=== PATIENT | male | born 1930 | race Caucasian/White ===

== ENCOUNTER 2019-10-18 09:54 | Emergency (ER) | payer OTHER ==
[2019-10-18 10:42] LABS: Basophils % 0.7 % (0-1.3); Hematocrit 40.1 % (39.6-49.0); Lymphocytes % 25.4 % (15.3-44.8); MPV 12.8 fL (7.6-11.3); RBC Red Blood Cell Count 4.35 M/uL (4.33-5.43)
[2019-10-18 10:45] LABS: Protime INR 1.41
--- NOTE | 2019-10-18 11:08 | RAD REPORT ---
EXAM DESCRIPTION: RAD - Chest Single View - 10/18/2019 10:45 am CLINICAL HISTORY: COUGH COMPARISON: Portable September 2016, two view December 2010, portable August 2009 TECHNIQUE: AP portable chest image was obtained 10/18/2019 10:45 am . FINDINGS: Lung volumes are relatively low but no peripheral mass consolidation is confirmed. Slight prominence of the bibasilar lung marking can be accounted for by the shallow inspiration. Heart size normal. No vascular engorgement. Fullness along the right side of the mediastinum pend hilar region s imilar to prior imaging. This is accentuated in part by rotation. No measurable pleural effusion and no pneumothorax. No acute bony abnormality seen. No acute aortic findings suspected. IMPRESSION: No acute lung parenchymal process identifiable.
--- NOTE | 2019-10-18 11:47 | RAD REPORT ---
EXAM DESCRIPTION: CT - Chest For Pe Angio - 10/18/2019 11:24 am CLINICAL HISTORY: cough, hemoptysis COMPARISON: Chest Single View dated 10/18/2019 TECHNIQUE: Dynamically enhanced 3 mm thick images of the chest were obtained during administration o f approximately 150mL Isovue 370 IV contrast. Coronal and oblique MIP reconstruction images were gene rated and reviewed. Exam utilizes a protocol to evaluate the pulmonary arterial tree. All CT scans are performed using dose optimization technique as appropriate and may include automated exposure control or mA/KV adjustment according to patient size. FINDINGS: No pulmonary emboli are identified. Far peripheral branch assessment is somewhat limited b y motion. No abnormality suspected. No gross aortic abnormality. Aorta assessment is limited on PE protocol study. No pericardial thicken ing or effusion. No infiltrate or mass in the lung parenchyma. No pleural effusion or pleural thickening. No mediastinal or hilar suspicious masses. No chest wall masses or abnormal axillary lymphadenopathy. No endobronchial lesions are identified. No abnormal bronchial wall thickening. Bilateral shoulder joint degenerative changes are present only partially imaged. No pathologic bone p rocess confirmed. IMPRESSION: No pulmonary emboli identified. No other significant or suspicious findings.
--- NOTE | 2019-10-18 12:13 | ER ---
Nurse's Notes [facility] Name: Ayo Cordero Age: 89 yrs Sex: Male : 1930 Arrival Date: 10/18/2019 Time: 09:56 Bed 8 Private MD: Diagnosis: Cough;Hemoptysis Presentation: 10/17 10:00 Chief complaint: Worsening productive cough with blood tinged yellow sputum and hb intermittent fever x 1 month. Coronavirus screen: Patient reports a cough. Patient denies shortness of breath or difficulty breathing. Patient denies measured and/or subjective temperature greater than 100.4F prior to today's visit. Patient denies travel on a cruise ship or to a country the [facility] currently lists as an affected area. Patient denies contact with known and/or suspected case of COVID-19. Ebola Screen: No symptoms or risks identified at this time. Initial Sepsis Screen: Does the patient meet any 2 criteria? No. Patient's initial sepsis screen is negative. Does the patient have a suspected source of infection? No. Patient's initial sepsis screen is negative. Risk Assessment: Do you want to hurt yourself or someone else? Patient reports no desire to harm self or others. Onset of symptoms was September 2019. 10:00 Method Of Arrival: Ambulatory hb 10:00 Acuity: TEJINDER 3 hb Historical: - Allergies: 10:03 No Known Allergies; hb - Home Meds: 10:03 clopidogrel 75 mg Oral tab 1 tab once daily [Active]; Lipitor 80 mg Oral tab 1 tab once hb daily [Active]; lisinopril 10 mg Oral tab 1 tab once daily [Active]; meclizine 25 mg Oral tab 1 tab as needed for vertigo [Active]; metoprolol succinate 25 mg Oral Tb24 1 tab once daily [Active]; tamsulosin 0.4 mg Oral cp24 1 cap once daily [Active]; - PMHx: 10:03 Hyperlipidemia; Hypertension; prostate englargement; hb - Immunization history:: Adult Immunizations up to date. - Social history:: Smoking status: Patient denies any tobacco usage or history of. - Family history:: not pertinent. - Hospitalizations: : No recent hospitalization is reported. Screenin:45 Abuse screen: Denies threats or abuse. Nutritional screening: No deficits noted. Tuberculosis screening: No symptoms or risk factors identified. Fall Risk None identified. Assessment: 10:42 General: Appears in no apparent distress. Behavior is calm, cooperative. Pain: Denies ah pain. Neuro: Level of Consciousness is awake, alert, obeys commands, Oriented to person, place, time, situation, Partition Setter are equal bilaterally Speech is normal, Facial symmetry appears normal. Cardiovascular: Denies chest pain, Heart tones S1 S2 present Capillary refill < 3 seconds Patient's skin is warm and dry. Pulses are palpable in right radial artery, right dorsalis pedis artery, left radial artery and left dorsalis pedis artery. Respiratory: Airway is patent Respiratory effort is even, unlabored, Respiratory pattern is regular, symmetrical, Sputum is thick, blood streaked, yellow Breath sounds are coarse bilaterally. GI: No signs and/or symptoms were reported involving the gastrointestinal system. Bowel sounds present X 4 quads. Abd is soft and non tender. : No signs and/or symptoms were reported regarding the genitourinary system. EENT: Nares are clear with drainage noted. Derm: No signs and/or symptoms reported regarding the dermatologic system. Musculoskeletal: No signs and/or symptoms reported regarding the musculoskeletal system. Vital Signs: 10:00 BP 131 / 76; Pulse 81; Resp 20; Temp 97.8; Pulse Ox 96% on R/A; Weight 82.55 kg; Height hb 5 ft. 11 in. (180.34 cm); Pain 0/10; 12:36 BP 112 / 93; Pulse 63; Resp 18; Pulse Ox 96% ; ah 10:00 Body Mass Index 25.38 (82.55 kg, 180.34 cm) ED Course: 09:56 Patient arrived in ED. am2 10:02 Triage completed. hb 10:03 Kulwinder Haines MD is Attending Physician. rn 10:03 Arm band placed on. hb 10:20 Initial lab(s) drawn, by ma, sent to lab. First set of blood cultures drawn by ma. 3 Inserted saline lock: 18 gauge in right forearm, using aseptic technique. Blood collected. 10:24 Patricia Weiss, RN is Primary Nurse. 10:25 Second set of blood cultures drawn by ma. 3 10:45 Patient has correct armband on for positive identification. Placed in gown. Bed in low ah position. Call light in reach. Side rails up X 1. 10:46 XRAY CXR (1 view) In Process Unspecified. EDMS 11:[address] via stretcher. 11:25 CT Chest For PE Angio In Process Unspecified. EDMS 12:35 No provider procedures requiring assistance completed. IV discontinued, intact, bleeding controlled, No redness/swelling at site. Pressure dressing applied. Administered Medications: No medications were administered Outcome: 12:12 Discharge ordered by . rn 12:35 Discharged to home ambulatory. 12:35 Condition: good 12:35 Discharge instructions given to patient, Instructed on discharge instructions, follow up and referral plans. medication usage, Demonstrated understanding of instructions, follow-up care, medications, Prescriptions given X 2. 12:36 Patient left the ED. Signatures: Dispatcher [employer] [facility] Kulwinder Haines MD MD rn Baxter, Heather RN Cheyenne Baker am2 Yanely Washburn 3 Patricia Weiss RN JUAQUIN
--- NOTE | 2019-10-18 12:14 | EDPHYS ---
Physician Documentation [facility] Name: Ayo Cordero Age: 89 yrs Sex: Male : 1930 Arrival Date: 10/18/2019 Time: 09:56 Bed 8 Private MD: ED Physician Kulwinder Haines HPI: 10/17 10:13 This 89 yrs old Male presents to ER via Ambulatory with complaints of Cough, rn Congestion. 10:13 The patient or guardian reports cough, described as mild, with productive sputum. rn Onset: The symptoms/episode began/occurred 1 month(s) ago. Severity of symptoms: At their worst the symptoms were mild, in the emergency department the symptoms are unchanged. Modifying factors: The symptoms are alleviated by nothing, the symptoms are aggravated by nothing. The patient has not experienced similar symptoms in the past. Reports cough and congestion for 1 month, fever 3 weeks ago but not now, noticed small amount of blood in sputum last night, so came in. Denies chest pain or sob. Reports doesn't feel ill, but blood was alarming.. Historical: - Allergies: 10:03 No Known Allergies; hb - Home Meds: 10:03 clopidogrel 75 mg Oral tab 1 tab once daily [Active]; Lipitor 80 mg Oral tab 1 tab once hb daily [Active]; lisinopril 10 mg Oral tab 1 tab once daily [Active]; meclizine 25 mg Oral tab 1 tab as needed for vertigo [Active]; metoprolol succinate 25 mg Oral Tb24 1 tab once daily [Active]; tamsulosin 0.4 mg Oral cp24 1 cap once daily [Active]; - PMHx: 10:03 Hyperlipidemia; Hypertension; prostate englargement; hb - Immunization history:: Adult Immunizations up to date. - Social history:: Smoking status: Patient denies any tobacco usage or history of. - Family history:: not pertinent. - Hospitalizations: : No recent hospitalization is reported. ROS: 10:13 Constitutional: Negative for fever, chills, and weight loss, Eyes: Negative for injury, rn pain, redness, and discharge, Neck: Negative for injury, pain, and swelling, Cardiovascular: Negative for chest pain, palpitations, and edema, Respiratory: + cough and hemoptysis, negative for sob. Abdomen/GI: Negative for abdominal pain, nausea, vomiting, diarrhea, and constipation, MS/Extremity: Negative for injury and deformity, Skin: Negative for injury, rash, and discoloration, Neuro: Negative for headache, weakness, numbness, tingling, and seizure. Exam: 10:13 Constitutional: This is a well developed, well nourished patient who is awake, alert, rn and in no acute distress. Ambulatory to room without distress or assistance. Head/Face: Normocephalic, atraumatic. Neck: Trachea midline, no thyromegaly or masses palpated, and no cervical lymphadenopathy. Supple, full range of motion without nuchal rigidity, or vertebral point tenderness. No Meningismus. Cardiovascular: Regular rate and rhythm. No pulse deficits. Respiratory: Clear bilateral breath sounds. No increased work of breathing, no retractions or nasal flaring. Skin: Warm, dry MS/ Extremity: Pulses equal, no cyanosis. Neurovascular intact. Full, normal range of motion. Equal circumference. Neuro: Awake and alert, GCS 15 Vital Signs: 10:00 BP 131 / 76; Pulse 81; Resp 20; Temp 97.8; Pulse Ox 96% on R/A; Weight 82.55 kg; Height hb 5 ft. 11 in. (180.34 cm); Pain 0/10; 12:36 BP 112 / 93; Pulse 63; Resp 18; Pulse Ox 96% ; ah 10:00 Body Mass Index 25.38 (82.55 kg, 180.34 cm) hb MDM: 10:03 Patient medically screened. rn 12:11 Differential Diagnosis: Bronchitis Upper Respiratory Infection Sinusitis Viral Syndrome rn Pneumonia. Data reviewed: vital signs, nurses notes, lab test result(s), radiologic studies, CT scan, plain films, and as a result, I will discharge patient. Test interpretation: by ED physician or midlevel provider: plain radiologic studies, CXR neg for pneumonia. Counseling: I had a detailed discussion with the patient and/or guardian regarding: the historical points, exam findings, and any diagnostic results supporting the discharge/admit diagnosis, lab results, radiology results, the need for outpatient follow up, to return to the emergency department if symptoms worsen or persist or if there are any questions or concerns that arise at home. Special discussion: I discussed with the patient/guardian in detail that at this point there is no indication for admission to the hospital. It is understood, however, that if the symptoms persist or worsen the patient needs to return immediately for re-evaluation. ED course: Neg cxr and CT PE, no oxygen requirement, will cover with abx given hemoptysis and prolonged productive cough.. 12:17 ED course: Still productive cough, no hemoptysis while here.. rn 10/17 10:10 Order name: Blood Culture Adult (2) rn 10/17 10:10 Order name: BMP; Complete Time: : rn 10/17 10:10 Order name: CBC with Diff; Complete Time: rn 10/17 10:10 Order name: NT PRO-BNP; Complete Time: : rn 10/17 10:10 Order name: PT-INR; Complete Time: rn 10/17 10:10 Order name: Ptt, Activated; Complete Time: rn 10/17 10:10 Order name: XRAY CXR (1 view); Complete Time: 10/17 10:10 Order name: EKG; Complete Time: : rn 10/17 10:10 Order name: Cardiac monitoring; Complete Time: rn 10/17 10:10 Order name: EKG - Nurse/Tech; Complete Time: rn 10/17 10:10 Order name: IV Saline Lock; Complete Time: rn 10/17 10:10 Order name: Labs collected and sent; Complete Time: 10/17 10:10 Order name: Procalcitonin; Complete Time: : rn 10/17 11:07 Order name: CT Chest For PE Angio; Complete Time: 10/17 10:10 Order name: O2 Per Protocol; Complete Time: rn 10/17 10:10 Order name: O2 Sat Monitoring; Complete Time: 11: rn Administered Medications: No medications were administered Disposition: 10/18/19 12:12 Discharged to Home. Impression: Cough, Hemoptysis. - Condition is Stable. - Discharge Instructions: Hemoptysis, Cough, Adult. - Prescriptions for Augmentin 875- 125 mg Oral Tablet - take 1 tablet by ORAL route every 12 hours for 10 days; 20 tablet. Guaifenesin AC 10- 100 mg/5 mL Oral Liquid - take 10 milliliter by ORAL route every 4 hours As needed; 240 milliliter. - Medication Reconciliation Form, Thank You Letter, Antibiotic Education, Prescription Opioid Use form. - Follow up: Private Physician; When: As needed; Reason: Recheck today's complaints, Re-evaluation by your physician. - Problem is an ongoing problem. - Symptoms have improved. Signatures: Dispatcher [employer] EDMS Kulwinder Haines MD MD rn Baxter, Heather, RN RN hb Harris, Amy, RN RN Corrections: (The following items were deleted from the chart) 12:36 12:12 10/18/2019 12:12 Discharged to Home. Impression: Cough; Hemoptysis. Condition is ah Stable. Forms are Medication Reconciliation Form, Thank You Letter, Antibiotic Education, Prescription Opioid Use. Follow up: Private Physician; When: As needed; Reason: Recheck today's complaints, Re-evaluation by your physician. Problem is an ongoing problem. Symptoms have improved. rn
[2019-10-18 12:44] VITALS: TEMP 97.8; O2SAT 96
[2019-10-18 12:45] VITALS: BP 112/93
--- NOTE | 2019-10-18 16:23 | EKG ---
Test Date: 2019-10-18 Test Time: 10:31:34 Elementary Secretary: Favio Weiss MEASUREMENT RESULTS: Intervals: Rate: 68 NC: 192 QRSD: 144 QT: 406 QTc: 431 [place]: P: NC: 192 QRS: -41 T: -15 INTERPRETIVE STATEMENTS: Sinus rhythm with premature supraventricular complexes Left axis deviation Nonspecific intraventricular block Inferior infarct, age undetermined Cannot rule out Anterior infarct, age undetermined Abnormal ECG Compared to ECG 10/08/2016 10:04:09 Left-axis deviation now present Myocardial infarct finding still present Electronically Signed On 10-18-19 16:22:08 CDT by Gil Garcia
== END 2019-10-18 12:36 | disposition home or self-care (01) ==
LOC: ER 09:54
DX: R04.2 Hemoptysis (principal); I10 Essential (primary) hypertension; E78.5 Hyperlipidemia, unspecified
CPT/HCPCS: 93005; 87040 ×2; 85025; 80048; 36415; 85610; 85730; 84145; 83880; 71275; 71045; Q9967

== ENCOUNTER 2021-07-22 09:29 | Inpatient (IN) | payer OTHER ==
--- OUTSIDE RECORDS SUMMARY | 2021-07-22 09:32 | XMS REPORT | Continuity of Care Document ---
:1930 Author Organization [facility] t Address [address] [place] [address] [place] [id number] Care Team Providers Name Role Phone Unavailable Unavailable Unavailable Payers Payer Name Policy Type Policy Number Effective Date Expiration Date S ource COVID VACCINE [id number] 2020-07-20 00:00:00 ADMIN / TESTING Problems This patient has no known problems. Allergies, Adverse Reactions, Alerts This patient has no known allergies or adverse reactions. Medications This patient has no known medications. Procedures This patient has no known procedures. Encounters Start End Encounter Admission Attending Care Care Encounter Source Date/Time Date/Time Type Type Clinicians Facility Department ID 2020-08-10 2020-08-10 Outpatient [facility] [id number] [facility] 00:00:00 00:00:00 2020-07-20 2020-07-20 Outpatient [facility] [id number] [facility] 00:00:00 00:00:00 Results This patient has no known results.
[2021-07-22 10:26] LABS: Absolute Lymphocytes (CBC) 1.3 K/uL (0.7-4.9); Hematocrit 38.5 % (39.6-49.0); Lymphocytes % 8.8 % (15.3-44.8); MPV 12.2 fL (7.6-11.3); RBC Red Blood Cell Count 4.15 M/uL (4.33-5.43)
[2021-07-22 10:27] LABS: Protime INR 1.76
[2021-07-22 10:42] LABS: AST/SGOT 23 U/L (15-37); Albumin 2.8 g/dL (3.4-5.0); Alkaline Phosphatase 111 U/L (45-117); BUN Blood Urea Nitrogen 16 mg/dL (7-18); Bicarbonate 26 mmol/L (21-32); Bilirubin Direct 0.7 mg/dL (0-0.2); Bilirubin Total 1.7 mg/dL (0.2-1.0); Glucose Level 116 mg/dL (74-106); Magnesium 2.1 mg/dL (1.8-2.4); NT PRO-BNP 3055 pg/mL (<450); Potassium 4.4 mmol/L (3.5-5.1); Sodium Level 134 mmol/L (136-145)
[2021-07-22 10:47] LABS: ALT/SGPT < 6 U/L (12-78)
--- NOTE | 2021-07-22 11:37 | RAD REPORT ---
EXAM DESCRIPTION: RAD - Chest Single View - 07/22/2021 11:01 am CLINICAL HISTORY: cough, sob COMPARISON: <Comparisons> FINDINGS: Lines: None. Lungs: No evidence of edema or pneumonia. Pleural: No significant pleural effusions or pneumothorax. Cardiac: The heart size is within normal limits. Bones: No acute fractures. Other: IMPRESSION: No acute cardiopulmonary disease.
[2021-07-22 11:44] LABS: SARS-COV-2 RT PCR NEGATIVE (NEGATIVE)
--- NOTE | 2021-07-22 14:05 | RAD REPORT ---
EXAM DESCRIPTION: CT - Chest For Pe Angio - 07/22/2021 1:53 pm CLINICAL HISTORY: SOB COMPARISON: Chest For Pe Angio dated 10/18/2019; Chest Single View dated 07/22/2021 FINDINGS: Chest Wall: No suspicious thyroid nodules or pathologic lymphadenopathy. Lungs: Subpleural reticular opacities which are mild present. Small portion of the lung bases bilater ally are not included in the field of view. Pleura: Trace left effusion. Mediastinum/tika: Reactive sized hilar lymph nodes. Pulmonary arteries/Aorta: No filling defect identified. No aortic aneurysm. Heart: Small pericardial effusion. Normal heart size. Aortic valve calcifications. Coronary artery ca lcifications. Upper abdomen: Not included in the field of view. Bones: No acute abnormality. Multilevel degenerative changes are present in the spine. All CT scans are performed using dose optimization technique as appropriate and may include automated exposure control or mA/KV adjustment according to patient size. IMPRESSION: Negative for pulmonary embolism. Mild patchy subpleural ground-glass opacities could ref lect a mild multifocal pneumonia, including Covid-19.
[2021-07-22] MEDS ORDERED: NA CHLORIDE 0.9% 250 ML ONE (14:23)
[2021-07-22] MEDS ORDERED: CEFTRIAXONE 1000 MG/VIAL ONE (14:23)
--- NOTE | 2021-07-22 14:24 | ER ---
Nurse's Notes [facility] Name: Ayo Cordero Age: 89 yrs Sex: Male : 1930 Arrival Date: 07/22/2021 Time: 09:32 Bed 16 Private MD: Diagnosis: Multifocal Pneumonia Presentation: 07/22 09:41 Chief complaint: Patient states: pt presented to ed reporting cough congestion griffin shortness of breath x4 days. Coronavirus screen: Vaccine status: Patient reports receiving the 2nd dose of the covid vaccine. Ebola Screen: Patient denies travel to an Ebola-affected area in the 21 days before illness onset. Initial Sepsis Screen: Does the patient meet any 2 criteria? No. Patient's initial sepsis screen is negative. Does the patient have a suspected source of infection? No. Patient's initial sepsis screen is negative. Risk Assessment: Do you want to hurt yourself or someone else? Patient reports no desire to harm self or others. Onset of symptoms was July 18, 2021. 09:41 Method Of Arrival: Ambulatory griffin 09:41 Acuity: TEJINDER 3 griffin Triage Assessment: 09:45 General: Appears in no apparent distress. comfortable, well groomed, well nourished, cb5 Behavior is calm, cooperative, appropriate for age. Pain: Denies pain. Respiratory: Reports cough that is productive, nurse witness productive cough of yellow sputum. Historical: - Allergies: 09:42 Codeine; griffin - Home Meds: 09:42 clopidogrel 75 mg Oral tab 1 tab once daily [Active]; Lipitor 80 mg Oral tab 1 tab once griffin daily [Active]; lisinopril 10 mg Oral tab 1 tab once daily [Active]; meclizine 25 mg Oral tab 1 tab as needed for vertigo [Active]; metoprolol succinate 25 mg Oral Tb24 1 tab once daily [Active]; - PMHx: 09:42 Hyperlipidemia; Hypertension; prostate englargement; griffin - PSHx: 09:42 None; griffin - Immunization history:: Adult Immunizations up to date. - Social history:: Smoking status: . Screenin:56 Abuse screen: Denies threats or abuse. Denies injuries from another. Nutritional cb5 screening: No deficits noted. Tuberculosis screening: No symptoms or risk factors identified. Assessment: 09:55 General: Appears in no apparent distress. comfortable, well groomed, well nourished, cb5 Behavior is calm, cooperative, appropriate for age. Pain: Denies pain. Neuro: No deficits noted. Level of Consciousness is awake, alert, obeys commands, Oriented to person, place, time, situation, Appropriate for age. Cardiovascular: No deficits noted. Respiratory: Reports cough that is Airway is patent Trachea midline Respiratory effort is even, Respiratory pattern is regular, Sputum is thick, yellow. GI: Patient currently denies. : Denies. EENT: Denies. Derm: Denies. Musculoskeletal: Denies. 16:00 General: Gave report to Harriett Wynn for room 212. 5 Vital Signs: 09:41 BP 120 / 76; Pulse 89; Resp 18; Temp 96(O); Pulse Ox 98.7% on R/A; Weight 83.01 kg; griffin Height 5 ft. 11 in. (180.34 cm); 09:54 BP 118 / 81; Pulse 71; Resp 16; Temp 98.8; Pulse Ox 99% ; Pain 0/10; cb5 11:00 BP 112 / 77; Pulse 72; Resp 16; Pulse Ox 98% ; Pain 0/10; cb5 13:13 BP 124 / 80; Pulse 80; Resp 16; Pulse Ox 97% ; Pain 0/10; cb5 09:41 Body Mass Index 25.52 (83.01 kg, 180.34 cm) ED Course: 09:32 Patient arrived in ED. as 09:42 Triage completed. 09:45 Bakari Fox PA is PHCP. [facility] 09:45 Kulwinder Haines MD is Attending Physician. [facility] 09:53 Cynthia Ramirez, RN is Primary Nurse. cb5 09:54 Arm band placed on right wrist. cb5 09:56 No provider procedures requiring assistance completed. cb5 09:57 Patient has correct armband on for positive identification. Bed in low position. Call cb5 light in reach. Side rails up X 1. 11:01 XRAY Chest (1 view) In Process Unspecified. EDMS 11:35 COVID-19/FLU A+B (Document "Date of Onset" if Symptomatic) Sent. cb5 13:54 CT Chest For PE Angio In Process Unspecified. EDMS 14:23 Sammy Cobos MD is Hospitalizing Provider. jmm 15:38 Changed dressing on left antecubital Patient pulled IV out. Dressings: 4X4s X 1; left mb4 arm. Administered Medications: 14:29 Drug: Rocephin (cefTRIAXone) 1 grams Route: IV; Rate: calculated rate; Site: left cb5 antecubital; Outcome: 14:23 Decision to Hospitalize by Provider. jmm 16:27 Patient left the ED. cb5 Signatures: Dispatcher [employer] EDMS Bakari Fox PA PA jmm Martinez, Amelia as Baxter, Mackenzie 4 Gela Cr RN RN griffin Cynthia Ramirez, RN RN cb5 Corrections: (The following items were deleted from the chart) 09:44 09:42 Home Meds: tamsulosin 0.4 mg Oral cp24 1 cap once daily; griffin griffin
--- NOTE | 2021-07-22 14:24 | EDPHYS ---
Physician Documentation [facility] Name: Ayo Cordero Age: 89 yrs Sex: Male : 1930 Arrival Date: 07/22/2021 Time: 09:32 Bed 16 Private MD: ED Physician Kulwinder Haines HPI: 07/22 09:54 This 89 yrs old Male presents to ER via Ambulatory with complaints of Chest Congestion, jmm Cough. 09:54 The patient or guardian reports cough. Onset: The symptoms/episode began/occurred jmm gradually, 4 day(s) ago. Modifying factors: The symptoms are alleviated by nothing. the symptoms are aggravated by nothing. Associated signs and symptoms: Pertinent positives: cough, . The patient has experienced similar episodes in the past. The patient has not recently seen a physician. Historical: - Allergies: 09:42 Codeine; griffin - Home Meds: 09:42 clopidogrel 75 mg Oral tab 1 tab once daily [Active]; Lipitor 80 mg Oral tab 1 tab once griffin daily [Active]; lisinopril 10 mg Oral tab 1 tab once daily [Active]; meclizine 25 mg Oral tab 1 tab as needed for vertigo [Active]; metoprolol succinate 25 mg Oral Tb24 1 tab once daily [Active]; - PMHx: 09:42 Hyperlipidemia; Hypertension; prostate englargement; griffin - PSHx: 09:42 None; griffin - Immunization history:: Adult Immunizations up to date. - Social history:: Smoking status: . ROS: 09:54 Constitutional: Negative for fever, chills, and weight loss, Cardiovascular: Negative jmm for chest pain, palpitations, and edema. 09:54 Respiratory: Positive for cough, shortness of breath. 09:54 All other systems are negative. Exam: 09:54 Head/Face: atraumatic. Eyes: EOMI, no conjunctival erythema appreciated ENT: Moist jmm Mucus Membranes Neck: Trachea midline, Supple Chest/axilla: Normal chest wall appearance and motion. Cardiovascular: Regular rate and rhythm. No edema appreciated Respiratory: Normal respirations, no respiratory distress appreciated Abdomen/GI: Non distended, soft Back: Normal ROM Skin: General appearance color normal MS/ Extremity: Moves all extremities, no obvious deformities appreciated, no edema noted to the lower extremities Neuro: Awake and alert, normal gait Psych: Behavior is normal, Mood is normal, Patient is cooperative and pleasant 09:54 Constitutional: The patient appears in no acute distress, alert, awake. Vital Signs: 09:41 BP 120 / 76; Pulse 89; Resp 18; Temp 96(O); Pulse Ox 98.7% on R/A; Weight 83.01 kg; griffin Height 5 ft. 11 in. (180.34 cm); 09:54 BP 118 / 81; Pulse 71; Resp 16; Temp 98.8; Pulse Ox 99% ; Pain 0/10; cb5 11:00 BP 112 / 77; Pulse 72; Resp 16; Pulse Ox 98% ; Pain 0/10; cb5 13:13 BP 124 / 80; Pulse 80; Resp 16; Pulse Ox 97% ; Pain 0/10; cb5 09:41 Body Mass Index 25.52 (83.01 kg, 180.34 cm) griffin MDM: 09:54 Patient medically screened. [facility] 14:23 Data reviewed: vital signs, nurses notes. Counseling: I had a detailed discussion with josee the patient and/or guardian regarding: the historical points, exam findings, and any diagnostic results supporting the discharge/admit diagnosis, lab results, radiology results, the need for further work-up and treatment in the hospital. ED course: I discussed the patient with Dr. Cobos whom accepted the patient to the ER. 07/22 09:55 Order name: Basic Metabolic Panel; Complete Time: 10:56 [facility] 07/22 09:55 Order name: CBC with Diff [facility] 07/22 09:55 Order name: LFT's; Complete Time: 10:56 [facility] 07/22 09:55 Order name: Magnesium; Complete Time: 10:56 [facility] 07/22 09:55 Order name: NT PRO-BNP; Complete Time: 10:56 [facility] 07/22 09:55 Order name: PT-INR; Complete Time: 10:42 [facility] 07/22 09:55 Order name: Troponin HS; Complete Time: 10:56 [facility] 07/22 09:55 Order name: COVID-19/FLU A+B (Document "Date of Onset" if Symptomatic); Complete Time: [facility] 11:48 07/22 14:09 Order name: Blood Culture Adult (2) [facility] 07/22 14:52 Order name: Troponin High Sensitivity [facility] 07/22 14:52 Order name: Comprehensive Metabolic Panel [facility] 07/22 14:52 Order name: Comprehensive Metabolic Panel [facility] 07/22 14:53 Order name: CBC with Automated Diff [facility] 07/22 14:53 Order name: CBC with Automated Diff [facility] 07/22 09:55 Order name: XRAY Chest (1 view); Complete Time: 11:44 [facility] 07/22 09:55 Order name: EKG; Complete Time: 09:56 [facility] 07/22 09:55 Order name: Cardiac monitoring; Complete Time: 09:57 [facility] 07/22 09:55 Order name: EKG - Nurse/Tech; Complete Time: 11:36 [facility] 07/22 09:55 Order name: IV Saline Lock; Complete Time: 09:57 [facility] 07/22 09:55 Order name: Labs collected and sent; Complete Time: 11:36 [facility] 07/22 09:55 Order name: O2 Per Protocol; Complete Time: 09:57 [facility] 07/22 09:55 Order name: O2 Sat Monitoring; Complete Time: 09:57 [facility] 07/22 13:31 Order name: CT Chest For PE Angio; Complete Time: 14:06 [facility] 07/22 14:52 Order name: Heart Healthy [facility] 07/22 14:53 Order name: COVID 19 CPL [facility] Administered Medications: 14:29 Drug: Rocephin (cefTRIAXone) 1 grams Route: IV; Rate: calculated rate; Site: left cb5 antecubital; Disposition: 17:59 Co-signature as Attending Physician, Kulwinder Haines MD. rn Disposition Summary: 07/22/21 14:23 Hospitalization Ordered Hospitalization Status: Observation [facility] Provider: Sammy Cobos [facility] Location: Telemetry/MedSurg (observation) jmm Condition: Stable jmm Problem: new jmm Symptoms: are unchanged [facility] Bed/Room Type: Standard [facility] Room Assignment: [facility](07/22/21 16:08) Diagnosis - Multifocal Pneumonia jmm Forms: - Medication Reconciliation Form jmm - SBAR form jm Signatures: Dispatcher [employer] EDNC Bakari Fox PA PA m Kulwinder Haines MD MD rn Smirch, Shelby, RN RN Sridevi Guevara Heather RN JUAQUIN Ramirez, Cynthia, RN RN cb5 Corrections: (The following items were deleted from the chart) 09:44 09:42 Home Meds: tamsulosin 0.4 mg Oral cp24 1 cap once daily; elias griffin 15:38 14:23 [facility] domenico 16:08 15:38 [facility] eb ss
[2021-07-22] MEDS ORDERED: ALBUTEROL 2.5 MG/3 ML NEB SOL NEB PRN (14:45)
[2021-07-22] MEDS ORDERED: ONDANSETRON 4 MG/2 ML VIAL IV PRN (14:45)
[2021-07-22] MEDS ORDERED: ACETAMINOPHEN 500 MG TAB PO PRN (14:45)
[2021-07-22] MEDS ORDERED: MORPHINE 2 MG/ML SYR IV PRN (14:45)
--- NOTE | 2021-07-22 14:45 | P.HP ---
Certification for Inpatient Patient admitted to: Observation With expected LOS: <2 Midnights Patient will require the following post-hospital care: None Practitioner: I am a practitioner with admitting privileges, knowledge of patient current condition, hospital course, and medical plan of care. Services: Services provided to patient in accordance with Admission requirements found in Title 42 Section 412.3 of the Code of Federal Regulations Patient History Date of Service: 07/22/21 Reason for admission: Cough, Shortness of breath History of Present Illness: 89-year-old male with past medical history of hypertension, HLD, BPH, CVA with resolved dysarthria, hearing, A. fib on chronic anticoagulation presented because of cough since the last 4 days initially intermittent but gradually worsening assisted with onset of shortness of breath on exertion which has been progressive since the last 1 day. Cough is productive of brownish/darkish sputum. Patient presents to the ED because of persistent symptoms. He denies any chest pain no associated headache or fever. He denies any COVID contact. On presentation chest x-ray shows no acute infiltrate. Patient reside with the who is not sick at this time. Patient is vaccinated as well as have also received a booster of dose of COVID-vaccine and pneumonia vaccine. CT of the chest done shows no evidence of pulmonary embolism but noted subpleural patchy infiltrate worrisome for multifocal pneumonia versus COVID-pneumonia. Initial COVID swab screen was negative. He was noted with elevated BNP of greater than 2000. Patient is being admitted for further observation. He is saturating well on room air at rest Allergies No Known Allergies Allergy (Unverified 10/08/16 19:03) Home Medications: Atorvastatin Calcium [Lipitor] 1 tab PO DAILY 10/08/16 Meclizine HCl 1 tab PO PRN PRN 10/08/16 Metoprolol Succinate [Toprol Xl*] 1 tab PO DAILY 10/08/16 Tamsulosin [Flomax*] 1 cap PO DAILY 10/08/16 Apixaban [Eliquis] 2.5 mg PO BID 09/06/19 Cephalexin [Keflex] 500 mg PO Q6HR 09/06/19 - Past Medical/Surgical History Diabetic: No -: HTN -: A FIB -: MN -: BPH -: HYPERLIPEDEMIA -: TIA -: CHOLECYSTECTOMY -: HERNIA -: TONSILLECTOMY -: VASECTOMY -: APPENDECTOMY -: CATARACT - Social History Smoking Status: Never smoker Smoking therapy provided: No Patient receptive to therapy: No Alcohol use: No CD- Drugs: No Caffeine use: No Place of Residence: Home Review of Systems 10-point ROS is otherwise unremarkable Respiratory: Cough, Shortness of Breath, SOB with Excertion Physical Examination - Physical Exam General: Alert, In no apparent distress, Oriented x3 HEENT: Atraumatic, Normocephalic, PERRLA Neck: Supple, 2+ carotid pulse no bruit, JVD not distended Respiratory: Clear to auscultation bilaterally, Normal air movement Cardiovascular: No edema, Normal pulses, Regular rate/rhythm, Normal S1 S2 Capillary refill: <2 Seconds Gastrointestinal: Normal bowel sounds, Soft and benign, Non-distended Musculoskeletal: No clubbing, No swelling Neurological: Normal gait, Normal speech, Normal strength at 5/5 x4 extr, Normal tone External genitalia: No edema, No lesions - Studies Laboratory Data (last 24 hrs) 07/22/21 10:10: PT 20.4 H, INR 1.76 07/22/21 10:10: WBC 14.30 H, Hgb 12.8 L, Hct 38.5 L, Plt Count 150 L 07/22/21 10:10: Sodium 134 L, Potassium 4.4, BUN 16, Creatinine 1.21, Glucose 116 H, Magnesium 2.1, Total Bilirubin 1.7 H, AST 23, ALT < 6 L, Alkaline Phosphatase 111 Assessment and Plan - Problems (Diagnosis) (1) Pneumonia Current Visit: Yes Status: Acute (2) CVA (cerebral vascular accident) Onset Date: 10/09/16 Current Visit: No Status: Acute - Plan Multifocal pneumoniarule out COVID-pneumonia versus community-acquired Hypertension History of transient A. fibnot on any anticoagulation History of CVA HLD BPHstable Plan We will admit patient to observation We will start patient on empirical antibiotics with Rocephin/Zithromax Will obtain repeat COVID screen with PCR to absolutely rule out COVID infection since chest CT is still suspicious for COVID-pneumonia -Will place on droplet isolation protocol for now -Initiate zinc sulfate but no steroids yet -Will obtain blood cultures since associated leukocytosis Since elevated BNP we will add low-dose Lasix Continue blood pressure regimen Continue anticoagulation with Xarelto GI prophylaxis with PPI Transfer care to Dr. Hernandez in a.m. - Advance Directives Does patient have a Living Will: No Does patient have a Durable POA for Healthcare: No
[2021-07-22] MEDS ORDERED: guaiFENesin 100 MG/5 ML UCUP PO PRN (14:50)
[2021-07-22] MEDS ORDERED: HYDRALAZINE HCL 20 MG/ML VIAL IV PRN (14:50)
[2021-07-22] MEDS: GUAIFENESIN 600 MG SA TAB PO SCH ×2 (16:43→21:06)
[2021-07-22] MEDS: AZITHROMYCIN 250 MG TAB PO SCH (16:44)
[2021-07-22 16:48] VITALS: BMI 25.5
[2021-07-22] MEDS ORDERED: FUROSEMIDE 40 MG TABLET PO SCH (17:00)
[2021-07-22 18:25] LABS: Anisocytosis 1+; Blood Morphology Comment NOTED (NOT SEEN); Platelet Estimate DECR; Poikilocytosis 1+; White Blood Cell Scan OK (OK)
[2021-07-22] MEDS: APIXABAN 2.5 MG TABLET PO SCH (21:07)
[2021-07-23] MEDS: BENZONATATE 100 MG CAP PO PRN ×2 (01:59→17:06)
[2021-07-23 05:58] LABS: Absolute Lymphocytes (CBC) 1.7 K/uL (0.7-4.9); Lymphocytes % 13.3 % (15.3-44.8); MPV 11.1 fL (7.6-11.3); RBC Red Blood Cell Count 3.79 M/uL (4.33-5.43)
[2021-07-23 06:12] LABS: Albumin 2.4 g/dL (3.4-5.0); Bilirubin Total 1.1 mg/dL (0.2-1.0); Potassium 3.9 mmol/L (3.5-5.1); Protein, Total 6.3 g/dL (6.4-8.2)
[2021-07-23 07:00] LABS: Platelet Estimate DECR; Platelets, Giant PRESENT; White Blood Cell Scan OK (OK)
[2021-07-23 07:01] LABS: Blood Morphology Comment NOT SEEN (NOT SEEN)
[2021-07-23] MEDS ORDERED: ENOXAPARIN 40 MG/0.4 ML SQ SCH (09:00)
[2021-07-23] MEDS: METOPROLOL XL 25 MG TAB PO SCH (09:00)
[2021-07-23] MEDS: CEFTRIAXONE 1,000 MG in NA CHLORIDE 0.9% 50 ML IVPB SCH (09:03)
[2021-07-23] MEDS: APIXABAN 2.5 MG TABLET PO SCH ×2 (09:04→19:44)
[2021-07-23] MEDS: GUAIFENESIN 600 MG SA TAB PO SCH ×2 (09:04→19:44)
[2021-07-23] MEDS: ZINC SULFATE 220 MG CAP PO SCH (09:04)
[2021-07-23] MEDS: FUROSEMIDE 40 MG TABLET PO SCH (09:04)
[2021-07-23] MEDS: AZITHROMYCIN 250 MG TAB PO SCH (09:04)
[2021-07-24] MEDS: BENZONATATE 100 MG CAP PO PRN (01:08)
[2021-07-24] MEDS ORDERED: CEFTRIAXONE 1000 MG/VIAL ONE (07:58)
[2021-07-24] MEDS ORDERED: NA CHLORIDE 0.9% 0 ML ONE (08:00)
[2021-07-24] MEDS: FUROSEMIDE 40 MG TABLET PO SCH (09:23)
[2021-07-24] MEDS: GUAIFENESIN 600 MG SA TAB PO SCH ×2 (09:24→21:49)
[2021-07-24] MEDS: AZITHROMYCIN 250 MG TAB PO SCH (09:24)
[2021-07-24] MEDS: APIXABAN 2.5 MG TABLET PO SCH ×2 (09:24→21:50)
[2021-07-24] MEDS: ZINC SULFATE 220 MG CAP PO SCH (09:24)
[2021-07-24] MEDS: METOPROLOL XL 25 MG TAB PO SCH (09:24)
[2021-07-24] MEDS: CEFTRIAXONE 1,000 MG in NA CHLORIDE 0.9% 50 ML IVPB SCH (09:25)
[2021-07-24] MEDS ORDERED: PHENOL 1.4% ORAL SPRAY 180ML MM PRN (22:59)
[2021-07-24] MEDS: TAMSULOSIN 0.4 MG SR CAP PO SCH (23:13)
[2021-07-25 06:08] VITALS: O2SAT 94
[2021-07-25 06:26] LABS: Absolute Lymphocytes (CBC) 1.7 K/uL (0.7-4.9); Hematocrit 35.1 % (39.6-49.0); Lymphocytes % 18.3 % (15.3-44.8); MPV 12.6 fL (7.6-11.3); RBC Red Blood Cell Count 3.83 M/uL (4.33-5.43)
[2021-07-25 06:42] LABS: Potassium 3.4 mmol/L (3.5-5.1)
--- NOTE | 2021-07-25 06:49 | RAD REPORT ---
EXAM DESCRIPTION: RAD - Chest Single View - 07/25/2021 6:09 am CLINICAL HISTORY: pneumonia COMPARISON: July 22 TECHNIQUE: AP portable chest image was obtained 07/25/2021 6:09 am . FINDINGS: Interstitial pattern is stable from prior imaging. No new or progressive lung parenchymal finding. Heart and vasculature are normal. No measurable pleural effusion and no pneumothorax. IMPRESSION: Stable chest from July 22 imaging.
[2021-07-25] MEDS ORDERED: CEFTRIAXONE 1000 MG/VIAL ONE (07:45)
[2021-07-25] MEDS ORDERED: NA CHLORIDE 0.9% 50 ML ONE (07:55)
[2021-07-25] MEDS: CEFTRIAXONE 1,000 MG in NA CHLORIDE 0.9% 50 ML IVPB SCH (08:43)
[2021-07-25] MEDS: FUROSEMIDE 40 MG TABLET PO SCH (08:43)
[2021-07-25] MEDS: APIXABAN 2.5 MG TABLET PO SCH (08:43)
[2021-07-25] MEDS: GUAIFENESIN 600 MG SA TAB PO SCH (08:43)
[2021-07-25] MEDS: ZINC SULFATE 220 MG CAP PO SCH (08:43)
[2021-07-25] MEDS: METOPROLOL XL 25 MG TAB PO SCH (08:44)
[2021-07-25] MEDS: TAMSULOSIN 0.4 MG SR CAP PO SCH (08:44)
[2021-07-25 09:21] VITALS: BP 106/52; TEMP 97.4
--- NOTE | 2021-07-25 14:20 | ECHO ---
HEIGHT: 5 ft 11 in WEIGHT: 183 lb 0 oz DATE OF STUDY: 07/25/[address]: Isabel George MD 2-DIMENSIONAL: YES M.MODE: YES DOPPLER: YES COLOR FLOW: YES TDS: PORTABLE: DEFINITY: BUBBLE STUDY: DIAGNOSIS: CONGESTIVE HEART FAILURE CARDIAC HISTORY: CATHERIZATION: SURGERY: PROSTHETIC VALVE: PACEMAKER: MEASUREMENTS (cm) DIASTOLIC (NORMALS) SYSTOLIC (NORMALS) IVSd 1.0 (0.6-1.2) LA Diam (1.9-4.0) LVEF 44% LVIDd 5.5 (3.5-5.7) LVIDs 4.3 (2.0-3.5) %FS 22% LVPWd 1.0 (0.6-1.2) Ao Diam 2.9 (2.0-3.7) 2 DIMENSIONAL ASSESSMENT: RIGHT ATRIUM: NORMAL LEFT ATRIUM: DILATED RIGHT VENTRICLE: NORMAL LEFT VENTRICLE: NORMAL TRICUSPID VALVE: NORMAL MITRAL VALVE: NORMAL PULMONIC VALVE: NORMAL AORTIC VALVE: SCLEROSIS PERICARDIAL EFFUSION: NONE AORTIC ROOT: NORMAL LEFT VENTRICULAR WALL MOTION: MILD GLOBAL HYPOKINESIS DOPPLER/COLOR FLOW: NORMAL COMMENTS: MILD GLOBAL HYPOKINESIS. EJECTION FRACTION 44%. LEFT ATRIAL ENLARGEMENT. AORTIC SCLEROSIS - NO STENOSIS. TECHNOLOGIST: OLIVER MARKS
== END 2021-07-25 12:09 | disposition home or self-care (01) | DRG 195 ==
LOC: ER 09:29 → ERHOLD 14:45 → 2ND 16:08 → OBSVTOIN 07-23 15:22
PROVIDERS: ADMIT Internal Medicine; ATTEND Hospitalist
DX: J18.9 Pneumonia, unspecified organism (principal); I10 Essential (primary) hypertension; E78.5 Hyperlipidemia, unspecified; N40.0 Benign prostatic hyperplasia without lower urinary tract symptoms; I25.2 Old myocardial infarction; Z88.5 Allergy status to narcotic agent; Z79.02 Long term (current) use of antithrombotics/antiplatelets; Z79.899 Other long term (current) drug therapy; Z86.73 Personal history of transient ischemic attack (TIA), and cerebral infarction without residual deficits; Z90.49 Acquired absence of other specified parts of digestive tract; Z20.822 Contact with and (suspected) exposure to COVID-19
CPT/HCPCS: 0240U; 36415; 71045; 71275; 80048; 80053; 80076; 83735; 83880; 84145; 84484; 85025; 85610; 87040; 87070; 87077; 87186; 87205; 93005; 93306; 94010; 94760; 96374; 99283; G0378; J7050; Q9967; U0003

== ENCOUNTER 2021-09-25 11:17 | Day surgery (SDC) | payer OTHER ==
--- NOTE | 2021-09-20 09:56 | RAD REPORT ---
EXAM DESCRIPTION: RAD - Chest Pa And Lat (2 Views) - 09/20/2021 9:43 am CLINICAL HISTORY: Pre op pending TURP COMPARISON: Portable chest 07/25/2021 TECHNIQUE: Frontal and lateral views of the chest were obtained. FINDINGS: The lungs are clear of a peripheral mass or consolidation. Mild prominence of the intersti tial pattern matches comparison. Diaphragm is slightly flattened. No tika mass or lymphadenopathy kenya pected. Heart size is normal and central vasculature is within normal limits. No pleural effusion or pneumothorax seen. No acute bony finding noted. No aortic abnormality. IMPRESSION: No acute cardiopulmonary process. No significant change from comparison study.
[2021-09-20 10:03] LABS: Absolute Lymphocytes (CBC) 2.1 K/uL (0.7-4.9); Hematocrit 40.2 % (39.6-49.0); Lymphocytes % 26.8 % (15.3-44.8); MPV 11.5 fL (7.6-11.3); Protime INR 1.09; RBC Red Blood Cell Count 4.32 M/uL (4.33-5.43)
[2021-09-20 10:17] LABS: Potassium 4.3 mmol/L (3.5-5.1)
[2021-09-20 10:37] LABS: Blood Morphology Comment NOT SEEN (NOT SEEN); Platelet Estimate DECR; Platelets, Giant FEW; White Blood Cell Scan OK (OK)
[~2021-09-25 11:17] MED LIST: AMPICILLIN SODIUM 2 GM in NA CHLORIDE 0.9% 100 ML IVPB ONE; Gentamicin Inj 180 MG in NA CHLORIDE 0.9% 100 ML IV ONE
[2021-09-25] MEDS ORDERED: Ringers Lactate 1,000 ML IV ONE (11:53)
[2021-09-25] MEDS ORDERED: propofoL 200 MG/20 ML VIAL IV ONE ×4 (14:26→15:30)
[2021-09-25] MEDS ORDERED: FENTANYL CITR 100 MCG/2 ML ONE (14:26)
[2021-09-25] MEDS ORDERED: LIDOCAINE 1% MPF 5 ML VIAL ONE (14:29)
[2021-09-25] MEDS ORDERED: EPHEDRINE SULF 50 MG/ML VIAL ONE (15:02)
[2021-09-25] MEDS ORDERED: NS 0.9% VIAL 10 ML ONE (15:03)
[2021-09-25] MEDS ORDERED: dexAMETHasone 10 MG/ML VIAL ONE (15:13)
[2021-09-25] MEDS ORDERED: KETOROLAC 30 MG/ML INJ ONE (15:14)
[2021-09-25] MEDS ORDERED: ONDANSETRON 4 MG/2 ML VIAL ONE (15:14)
[2021-09-25] MEDS ORDERED: OPIUM/BELLADONNA SUPPOS (30-16.2 MG) PR ONE ×2 (15:59→16:04)
[2021-09-25] MEDS ORDERED: TRAMADOL 37.5mg/APAP 325mg PER TAB PO ONE (16:04)
[2021-09-25] MEDS: MORPHINE 4 MG/ML SYR ONE ×2 (16:07→16:16)
[2021-09-25] MEDS ORDERED: TRAMADOL 37.5mg/APAP 325mg PER TAB ONE (16:42)
[2021-09-25 16:56] VITALS: TEMP 96.5
[2021-09-25 17:56] VITALS: BP 120/61; O2SAT 97
--- NOTE | 2021-09-26 10:28 | OP ---
Surgeon: FRANCHESCA FERRARA Preoperative Diagnoses: 1.BPH with obstruction, lower urinary tract symptoms. 2.Acute urinary retention. Postoperative Diagnoses: 1.BPH with obstruction, lower urinary tract symptoms. 2.Acute urinary retention. Principal Procedure: Bipolar transurethral resection of the prostate. Indication For Procedure: Mr. Cordero is an -[id number]-[id number] gentleman with history of vasectomy in 1966, inferior wall acute myocardial infarction in 1988, CVA in 1998 and on Eliquis following CVA again in 2000, status post cholecystectomy in 2001 with urinary retention and overflow incontinence due to moderate BPH with lateral lobar hypertrophy and elevation of the median bar. 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 There was some mild stricture disease noted within the bulb, but that was insufficient to cause ob struction. As a result, I recommended and he completed urodynamic studies on 08/08/2021, which revea led BPH with obstruction and severe detrusor instability with urge incontinence. As a result, I coun seled that he was highly likely to have a significant urge incontinence following a TURP to remove th e obstruction. I did explain that we would then begin and be able to work hard on managing his detru sor instability. The alternative was likely continued obstruction and need for Rey catheterization . As a result, he agreed to proceed with surgery and presents today for that. Procedure In Detail: The patient was consented in the preoperative holding area before being transfe rred to the operative suite, where general anesthesia was induced. He was given ampicillin 2 g and g entamicin 180 mg IV antimicrobial prophylaxis. Pneumoboots was provided for DVT prophylaxis. He was given a dose of ciprofloxacin initially until cultures and sensitivities resulted in a Staphylococcu s that was resistant to all except for Bactrim orally; so he was then started on Bactrim yesterday in preparation for surgery today. He was placed in the lithotomy position, padded and secured to the t able appropriately. As indicated previously, Pneumoboots were provided for DVT prophylaxis. His gen victor manuel were prepped using Hibiclens and draped in standard fashion. The case was begun using urethra l sounds to dilate the meatus to 30-Occitan. I then utilized the 26-Occitan bipolar resectoscope kitty hampton and a visual obturator to traverse the urethra and into the bladder with ease. The bladder was samanta veyed, and posteriorly in the region of catheter trauma, there was some papillary, but benign-appeari ng tissue. This was in the midst of massive trabeculation and cellule and diverticula formation. As a result, I turned my attention back to the prostate, where there was significant elevation of media n bar without significant intravesical median lobar projection. There was also some lateral lobar hy pertrophy likely contributing to the obstruction. As a result, because the patient was in acute urin alvina retention, I proceeded to resect the median bar down to the level of the bladder neck and continu ed that resection to the level of the verumontanum in order to create a smooth trough. I then contin ued the resection into the left lateral lobe, both initially starting at the bladder neck and then ex tending that to the apex. This similar resection was performed on the right side at the bladder neck and then extending to the apex. Anterior overhanging tissue at the bladder neck was also resected u ntil there was a nice, widely patent channel from the bladder neck through to the verumontanum. Once adequate resection had been performed, I then Dez evacuated all prostate chips from his bladder or removed them under direct vision. I then performed a careful search for bleeding with his bladder c ompletely decompressed and fulgurated any oozing vessels. In the end, with his bladder completely de compressed and no fluid instillation, there was no active bleeding vessels noted; so I backfilled his bladder and with the channel still widely patent even with the bladder decompressed, once his bladde r was full, I then removed the resectoscope and placed a 22-Occitan 3-way Rey catheter. [address] erile water was placed in the balloon, and the catheter was connected to slow drip CBI with normal sa line with completely clear efflux of fluid and urine. The catheter was placed to moderate traction, and the patient was taken out of the lithotomy position. He was awakened from general anesthesia, tr ansferred to a stretcher, and then transferred to the recovery room in good condition. Complications: None. Discharge Disposition: He should plan follow up in Urology Clinic on Friday for a voiding trial. Sh ould the voiding trial be equivocal or he be unsuccessful at voiding, an 18 or a 20-Occitan Coude-tip catheter should be reinserted into his bladder. Otherwise, I instructed him to complete the 3-day co urse of Bactrim prescribed to kill the Staphylococcus found in his urine. He then should resume the ciprofloxacin, which he was previously taking, but stopped, until the catheter is removed and for at least 1-2 doses thereafter. Subsequent followup may be established with me in 1-3 months to assess f or ongoing difficulty voiding or if there is significant issue with urge incontinence. If not, I can see him back in 3 months. DASIA/HOLLY Voice ID: [id number] Report ID: [id number]
== END 2021-09-25 17:55 | disposition home or self-care (01) ==
LOC: OR 11:17
PROVIDERS: ATTEND Urology
PROC: 0VT08ZZ Resection of Prostate, Via Natural or Artificial Opening Endoscopic (ICD-10-PCS; principal; 2021-09-25 12:30)
DX: N40.1 Benign prostatic hyperplasia with lower urinary tract symptoms (principal); R33.9 Retention of urine, unspecified; N31.8 Other neuromuscular dysfunction of bladder; N48.1 Balanitis; B35.6 Tinea cruris; Z20.822 Contact with and (suspected) exposure to COVID-19
CPT/HCPCS: 87088; 85025; 87086; 80048; 36415; 85610; 88305; 87077; 87186; 71046; 52601; U0002; J2704 ×4; J1580; J3010; J1100; J7120; J2405; J0290